=== PATIENT | female | born 1940 | race Caucasian/White ===

== ENCOUNTER 2017-04-06 19:33 | Inpatient (IN) | payer MEDICARE ==
[~2017-04-06] VITALS: Ht 160 cm; Wt 51.7 kg
--- NOTE | 2017-04-06 21:33 | NUR ---
Report called to MAYTE Silver. Preparing to transfer pt to the floor
--- NOTE | 2017-04-06 21:59 | NUR ---
UNABLE TO GET ANY TYPE OF LIST FOR MEDS FROM PT OR SON
[2017-04-06 22:20] VITALS: BP 145/77
--- NOTE | 2017-04-06 22:25 | NUR ---
77 Y.O. FEMALE BROUGHT TO ER VIA AMBULANCE FROM [facility] IN [place]. Pt MEDICALLY CLEARED IN ER AND BROUGHT TO [facility] VIA GURNEY ACCOMPANIED BY ER STAFF. ACCORDING TO THE 5150, Pt IS PSYCHOTIC WITH AUDITORY HALLUCINATIONS AND BIZARRE BEHAVIOR. Pt IS OBTUSE, TANGENTIAL, AND NON-SENSICAL WITH PRESSURED SPEECH AND FLIGHT OF IDEAS. Pt HAS BEEN LIVING ALONE FOR 18 YEARS AND IS UNABLE TO PROVIDE DETAILS OF SELF CARE. Pt HAS HAD SIMILAR INCIDENCES D/T SCHIZOAFFECTIVE EPISODE. Pt MAKES MULTIPLE REFERENCES TO CHURCHES, GOD, AND EVENTS FROM 20 YEARS AGO. Pt APPEARS TO REFLECT WHAT IS ON THE HOLD, RN CONCURS WITH HOLD. ADVISEMENT GIVEN TO Pt. UPON FACE TO FACE EVALUATION, Pt PRESENTS MANIC, HYPERVERBAL, RAMBLING, TANGENTIAL, BIZARRE, PARANOID, AND DISORGANIZED. Pt IS A POOR HISTORIAN AND UNABLE TO PROVIDE ANY ACCURATE PERSONAL INFORMATION. DELUSIONAL, Pt STATES, "I KNOW PEOPLE IN [place], THEY ARE IN MY FAMILY." Pt ACCOMPANIED BY HER SON, AND HE WAS ABLE TO PROVIDE SOME INFORMATION. Pt STARED BLANKLY WHEN ASKED ABOUT SI, UNABLE TO CFS AT THIS TIME. Pt ACTIVELY RESPONDING TO INTERNAL STIMULI AND MUMBLING TO HERSELF, IS INTERNALLY PREOCCUPIED. Pt EXHIBITS POOR EYE CONTACT AND PRESSURED SPEECH. A+Ox1 TO NAME ONLY, Pt STATED, "[facility] Pt STATED THE REASON FOR ADMISSION "I THINK I NEED TO BE EVALUATED FOR A STROKE". Pt APPEARS DISHEVELED IN [facility]OWN AND SOILED SOCKS. UNABLE TO OBTAIN RELIABLE MEDICAL HX PER Pt AND SONS MANOLO AND TONE, UNABLE TO OBTAIN HOME MEDS, WILL ENDORSE TO DAY RN. VS STABLE UPON ADMISSION, DENIES PAIN. DR UNGER AND CHELSIE UMAÑA NOTIFIED OF Pt ADMISSION, ORDERS RECEIVED. BELONGINGS INVENTORIED AND PLACED IN UNIT LOCKER. Pt UNABLE TO SIGN PAPERWORK DUE TO MENTAL STATUS. Pt REFUSED VACCINES. Pt ORIENTED TO UNIT AND EDUCATED ABOUT UNIT RULES. Pt RIGHTS HANDBOOK GIVEN TO Pt
[2017-04-06] MEDS ORDERED: MAG HYDROX/AL HYDROX/SIMETH 30 ML LIQUID UDC PO PRN (22:45)
[2017-04-06] MEDS ORDERED: MAGNESIUM HYDROXIDE 30 ML LIQUID UDC PO PRN (22:45)
[2017-04-06] MEDS ORDERED: TEMAZEPAM 7.5 MG CAPSULE PO PRN (22:45)
[2017-04-07 07:30] VITALS: BP 135/78
[2017-04-07] MEDS: OLANZAPINE ZYDIS 5 MG TAB.RAPDIS PO SCH (12:14)
[2017-04-07 15:00] VITALS: BP 137/89
[2017-04-07] MEDS: CLONAZEPAM 0.5 MG TABLET PO PRN (19:57)
[2017-04-07] MEDS: ATORVASTATIN 10 MG TABLET PO SCH (20:06)
[2017-04-07 20:17] VITALS: BP 137/86
[2017-04-07] MEDS ORDERED: OLANZAPINE 10 MG VIAL IM ONE ×2 (22:45→22:56)
--- NOTE | 2017-04-08 02:04 | NUR ---
GPS/NSG Patient observed sitting on the floor when redirected patient began to cry, on approach patient was asked if staff could provide any help, however patient became agitated, and refused to cooperate when redirected off the floor into a chair. Patient displayed bizarre affect, with violent behavior by striking out at staff with the public phone hand piece. no harm evident however patient exhibited signs of increased escalation. physician contacted, IM times once order obtained and administered with effective outcome. Will continue to monitor for patient safety and well being. Addendum: 04/08/17 at 0211 by ARGELIA MATHIS RN IM administered on right deltoid.
[2017-04-08 07:24] LABS: CARBON DIOXIDE 31 mmol/L (21-32); CHLORIDE 112 mmol/L (98-107); CREATININE 0.7 mg/dL (0.6-1.3); GLUCOSE 100 mg/dL (74-106); POTASSIUM 5.5 mmol/L (3.5-5.1); UREA NITROGEN, BLOOD 14 mg/dL (7-18)
[2017-04-08 07:26] LABS: BASOPHILS # (AUTO) 0.1 K/uL (0.0-8.0); BASOPHILS % (AUTO) 1.7 % (0.0-2.0); EOSINOPHILS # (AUTO) 0.4 K/uL (0.0-0.7); EOSINOPHILS % (AUTO) 6.6 % (0.0-7.0); HEMATOCRIT 42.5 % (37-47); HEMOGLOBIN 14.5 G/DL (12.0-16.0); LYMPHOCYTES # (AUTO) 1.9 K/UL (0.8-4.8); LYMPHOCYTES % (AUTO) 32.5 % (20.5-51.5); MEAN CORPUSCULAR HEMOGLOBIN 31.8 UUG (27.0-31.0); MEAN CORPUSCULAR HGB CONC 34 g/dL (32.0-37.0); MEAN CORPUSCULAR VOLUME 93.4 FL (81.0-99.0); MONOCYTES # (AUTO) 0.5 K/UL (0.1-1.30); MONOCYTES % (AUTO) 9.5 % (0.0-11.0); NEUTROPHILS # (AUTO) 2.8 K/UL (1.8-8.9); NEUTROPHILS % (AUTO) 49.7 % (38.5-71.5); PLATELET COUNT (AUTO) 186 K/UL (150-450); RED BLOOD CELL COUNT(AUTO) 4.55 MIL/UL (4.2-5.4); WHITE BLOOD COUNT (AUTO) 5.7 K/UL (4.0-11.2)
[2017-04-08 07:30] VITALS: BP 104/72
[2017-04-08] MEDS: FAMOTIDINE 20 MG TABLET PO SCH (09:00)
[2017-04-08] MEDS: OLANZAPINE ZYDIS 5 MG TAB.RAPDIS PO SCH (09:30)
[2017-04-08 16:35] VITALS: BP 130/96
[2017-04-08] MEDS: CLONAZEPAM 0.5 MG TABLET PO PRN (20:18)
[2017-04-08] MEDS: ATORVASTATIN 10 MG TABLET PO SCH (20:18)
[2017-04-08 20:34] VITALS: BP 141/84
--- NOTE | 2017-04-08 21:52 | NUR ---
PATIENT RECEIVED WALKING THROUGH OUT THE UNIT, IN AND OUT OF ROOM TO ACTIVITIES ROOM. PATIENT ALERT/ORIENTED X1 TO NAME, CONFUSED, DISORGANIZED. PATIENT IS EASILY ANGRY, IRRITABLE, AND AGITATED ABLE TO REDIRECT. PATIENT NEEDS CONSTANT REDIRECTION AND PROMPTING. NO AGGRESSIVE OR COMBATIVE BEHAVIOR NOTED, WILL CONTINUE TO MONITOR AND REDIRECT.
[2017-04-09 07:30] VITALS: BP 132/79
[2017-04-09] MEDS: FAMOTIDINE 20 MG TABLET PO SCH (09:00)
[2017-04-09] MEDS: OLANZAPINE ZYDIS 5 MG TAB.RAPDIS PO SCH ×3 (09:00→17:00)
[2017-04-09 16:26] VITALS: BP 133/82
--- NOTE | 2017-04-09 16:44 | NUR ---
Initial Discharge Instructions: Pt resides at home alone [[address] [place] [address] [place] [id number]; [phone]]. Per pt, she would like to go back home upon discharge. Spoke with pt's son, Maksim Mena , who reported that he would like his mother to return home but is open to SNF placement if necessary. SW will speak with pt, family, and MD regarding appropriate discharge plans. SW will form a safe and proper discharge.
[2017-04-09] MEDS ORDERED: LEVO100T PO (17:46)
[2017-04-09 20:48] VITALS: BP 136/86
[2017-04-09] MEDS: ATORVASTATIN 10 MG TABLET PO SCH (21:00)
--- NOTE | 2017-04-09 21:22 | NUR ---
PATIENT RECEIVED WALKING THROUGH OUT THE UNIT, IN AND OUT OF ROOM TO ACTIVITIES ROOM. TANGENTIAL AND NON-SENSICAL. PATIENT ALERT/ORIENTED X1 TO NAME, CONFUSED, DISORGANIZED. PATIENT IS EASILY ANGRY, IRRITABLE ABLE TO REDIRECT. PATIENT NEEDS CONSTANT REDIRECTION AND PROMPTING. NO AGGRESSIVE OR COMBATIVE BEHAVIOR NOTED, WILL CONTINUE TO MONITOR AND REDIRECT.
[2017-04-10 07:30] VITALS: BP 132/81
[2017-04-10 08:13] LABS: *BILIRUBIN,URIN NEGATIVE (NEGATIVE); *BLOOD, URINE 1+ (NEGATIVE); *COLOR,URINE YELLOW (YELLOW); *KETONES,URINE NEGATIVE (NEGATIVE); *PROTEIN,URINE NEGATIVE (NEGATIVE); *UROBILINOGEN,URINE 0.2 E.U./dl (NORMAL); LEUKOCYTE ESTERASE ,URINE 3+ (NEGATIVE); NITRITE, URINE NEGATIVE (NEGATIVE); UGLUCOSE NEGATIVE (NEGATIVE)
[2017-04-10] MEDS: OLANZAPINE ZYDIS 5 MG TAB.RAPDIS PO SCH ×3 (08:23→18:25)
[2017-04-10] MEDS: FAMOTIDINE 20 MG TABLET PO SCH (08:23)
[2017-04-10 08:29] LABS: *CLARITY,URINE HAZY (CLEAR)
[2017-04-10] MEDS: CLONAZEPAM 0.5 MG TABLET PO PRN ×2 (08:35→20:25)
[2017-04-10 08:39] LABS: SQUAMOUS EPITHELIAL CELL,UR FEW /HPF (NONE SEEN); WBC,URINE 20-50 /HPF (0-3)
[2017-04-10 08:40] LABS: BACTERIA,URINE MANY /HPF (NONE SEEN)
[2017-04-10] MEDS: SULFAMETH/TRIMETH 800/160 MG TABLET PO SCH ×2 (11:15→20:25)
[2017-04-10] MEDS: LEVOTHYROXINE SODIUM 100 MCG TABLET PO SCH (15:00)
[2017-04-10] MEDS: DOCUSATE SODIUM 100 MG CAPSULE PO SCH ×2 (15:00→20:25)
[2017-04-10 16:52] VITALS: BP 113/68
[2017-04-10 20:01] VITALS: BP 143/87
[2017-04-10] MEDS: ATORVASTATIN 10 MG TABLET PO SCH (20:25)
--- NOTE | 2017-04-10 21:15 | NUR ---
NOTIFIED DR PAULINO OF ELEVATED K+. BMP, CBC, Mg AND PHOS AM LABS ORDERED.
[2017-04-11] MEDS: LEVOTHYROXINE SODIUM 100 MCG TABLET PO SCH (06:44)
[2017-04-11 07:26] LABS: BASOPHILS # (AUTO) 0.1 K/uL (0.0-8.0); EOSINOPHILS # (AUTO) 0.4 K/uL (0.0-0.7); HEMATOCRIT 43.2 % (37-47); HEMOGLOBIN 14.6 G/DL (12.0-16.0); LYMPHOCYTES # (AUTO) 1.2 K/UL (0.8-4.8); LYMPHOCYTES % (AUTO) 25.9 % (20.5-51.5); MEAN CORPUSCULAR HEMOGLOBIN 31.7 UUG (27.0-31.0); MEAN CORPUSCULAR HGB CONC 34 g/dL (32.0-37.0); MEAN CORPUSCULAR VOLUME 93.9 FL (81.0-99.0); MONOCYTES # (AUTO) 0.4 K/UL (0.1-1.30); NEUTROPHILS # (AUTO) 2.4 K/UL (1.8-8.9); NEUTROPHILS % (AUTO) 55.1 % (38.5-71.5); PLATELET COUNT (AUTO) 167 K/UL (150-450); WHITE BLOOD COUNT (AUTO) 4.5 K/UL (4.0-11.2)
[2017-04-11 07:30] VITALS: BP 142/88
[2017-04-11 07:41] LABS: ALANINE AMINOTRANSFERASE 35 U/L (14-59); ALKALINE PHOSPHATASE 48 U/L (50-136); ASPARTATE AMINOTRANSFERASE 27 U/L (15-37); BILIRUBIN,TOTAL 0.6 mg/dL (0.2-1.0); CARBON DIOXIDE 30 mmol/L (21-32); CHLORIDE 106 mmol/L (98-107); CREATININE 0.8 mg/dL (0.6-1.3); GLUCOSE 87 mg/dL (74-106); MAGNESIUM 2.2 mg/dL (1.8-2.4); PHOSPHOROUS 3.8 mg/dL (2.5-4.9); POTASSIUM 3.8 mmol/L (3.5-5.1); TOTAL PROTEIN, SERUM 7.1 g/dL (6.4-8.2); UREA NITROGEN, BLOOD 16 mg/dL (7-18)
[2017-04-11 07:50] LABS: THYROID STIMULATING HORMONE 4.132 mIU/mL (0.358-3.740)
[2017-04-11] MEDS: FAMOTIDINE 20 MG TABLET PO SCH (08:23)
[2017-04-11] MEDS: CLONAZEPAM 0.5 MG TABLET PO PRN (08:23)
[2017-04-11] MEDS: SULFAMETH/TRIMETH 800/160 MG TABLET PO SCH ×2 (08:23→20:35)
[2017-04-11] MEDS: DOCUSATE SODIUM 100 MG CAPSULE PO SCH ×2 (08:23→20:35)
[2017-04-11] MEDS: OLANZAPINE ZYDIS 5 MG TAB.RAPDIS PO SCH ×2 (08:24→16:04)
[2017-04-11 15:05] VITALS: BP 121/74
[2017-04-11 20:29] VITALS: BP 141/86
[2017-04-11] MEDS: ATORVASTATIN 10 MG TABLET PO SCH (20:35)
[2017-04-11] MEDS: ACETAMINOPHEN 325 MG TABLET PO PRN (21:18)
--- NOTE | 2017-04-11 22:00 | NUR ---
received to care, talking to self, intermittently pacing the hallway, neddy, attention seeking, and difficult to redirect. PRN restoril was given for insomnia, at 2035. as of 2199, she appears to be asleep. no distress noted. will continue to monitor closely.
[2017-04-12] MEDS: CLONAZEPAM 0.5 MG TABLET PO PRN (00:05)
--- NOTE | 2017-04-12 00:05 | NUR ---
pt is now awake, and attempting to get out of bed. gait appears unsteady, so she was placed in the kari chair. ADRIAN monroe was offered, but she refused. will continue to monitor closely.
--- NOTE | 2017-04-12 01:30 | NUR ---
appears to be asleep. no distress noted.
--- NOTE | 2017-04-12 06:00 | NUR ---
slept 3.5 hours, total. assited with toileting, and AM care. currently sitting at nurses station. no distress noted.
[2017-04-12] MEDS: LEVOTHYROXINE SODIUM 100 MCG TABLET PO SCH (06:13)
[2017-04-12 07:30] VITALS: BP 127/66
[2017-04-12] MEDS: SULFAMETH/TRIMETH 800/160 MG TABLET PO SCH ×2 (09:19→20:40)
[2017-04-12] MEDS: OLANZAPINE ZYDIS 5 MG TAB.RAPDIS PO SCH (09:20)
[2017-04-12] MEDS: FAMOTIDINE 20 MG TABLET PO SCH (09:20)
[2017-04-12] MEDS: DOCUSATE SODIUM 100 MG CAPSULE PO SCH ×2 (09:20→20:40)
[2017-04-12 16:02] VITALS: BP 120/62
[2017-04-12 20:20] VITALS: BP 133/84
[2017-04-12] MEDS: OLANZAPINE 2.5 MG TABLET PO SCH (20:41)
[2017-04-12] MEDS: ATORVASTATIN 10 MG TABLET PO SCH (20:41)
[2017-04-13] MEDS: LEVOTHYROXINE SODIUM 100 MCG TABLET PO SCH (06:17)
[2017-04-13 07:30] VITALS: BP 123/73
[2017-04-13] MEDS: DOCUSATE SODIUM 100 MG CAPSULE PO SCH ×2 (08:57→20:12)
[2017-04-13] MEDS: FAMOTIDINE 20 MG TABLET PO SCH (09:00)
[2017-04-13] MEDS: SULFAMETH/TRIMETH 800/160 MG TABLET PO SCH ×3 (09:00→20:12)
[2017-04-13] MEDS: OLANZAPINE ZYDIS 5 MG TAB.RAPDIS PO SCH ×2 (09:00→12:33)
[2017-04-13] MEDS: ACETAMINOPHEN 325 MG TABLET PO PRN ×2 (12:30→20:22)
--- NOTE | 2017-04-13 12:30 | NUR ---
Pt c/o back pain 01/25. Pt given Tylenol 650mg.
--- NOTE | 2017-04-13 12:38 | NUR ---
Pt was not compliant w/ medication Olanzapine and Bactrim this morning. She refused to take the medication. Son came to visit and convinced her to take her morning meds now. Pt took both meds
[2017-04-13 15:00] VITALS: BP 118/72
[2017-04-13 20:12] VITALS: BP 140/84
[2017-04-13] MEDS: ATORVASTATIN 10 MG TABLET PO SCH (20:12)
[2017-04-13] MEDS: OLANZAPINE 2.5 MG TABLET PO SCH (20:12)
[2017-04-14] MEDS: LEVOTHYROXINE SODIUM 100 MCG TABLET PO SCH (06:21)
[2017-04-14 07:30] VITALS: BP 108/85
[2017-04-14 08:23] LABS: BASOPHILS # (AUTO) 0.1 K/uL (0.0-8.0); BASOPHILS % (AUTO) 3.3 % (0.0-2.0); EOSINOPHILS # (AUTO) 0.3 K/uL (0.0-0.7); HEMATOCRIT 40.1 % (31.2-41.9); LYMPHOCYTES # (AUTO) 0.6 K/uL (20.0-40.0); LYMPHOCYTES % (AUTO) 18.6 % (20.5-51.5); MEAN CORPUSCULAR HEMOGLOBIN 32.5 uug (24.7-32.8); MEAN CORPUSCULAR HGB CONC 35 g/dL (32.3-35.6); MEAN CORPUSCULAR VOLUME 92.9 fL (75.5-95.3); MONOCYTES # (AUTO) 0.4 K/uL (2.0-10.0); MONOCYTES % (AUTO) 12.7 % (0.0-11.0); NEUTROPHILS # (AUTO) 1.7 K/uL (1.8-8.9); NEUTROPHILS % (AUTO) 56.4 % (38.5-71.5); PLATELET COUNT (AUTO) 142 K/uL (179-408); RED BLOOD CELL COUNT(AUTO) 4.31 MIL/uL (3.63-4.92)
[2017-04-14 08:36] LABS: ALANINE AMINOTRANSFERASE 46 U/L (14-59); ALKALINE PHOSPHATASE 53 U/L (50-136); ASPARTATE AMINOTRANSFERASE 30 U/L (15-37); BILIRUBIN,TOTAL 0.6 mg/dL (0.2-1.0); CARBON DIOXIDE 30 mmol/L (21-32); CHLORIDE 104 mmol/L (98-107); CREATININE 0.9 mg/dL (0.6-1.3); GLUCOSE 83 mg/dL (74-106); MAGNESIUM 2.2 mg/dL (1.8-2.4); PHOSPHOROUS 3.7 mg/dL (2.5-4.9); POTASSIUM 4.1 mmol/L (3.5-5.1); TOTAL PROTEIN, SERUM 7.2 g/dL (6.4-8.2); UREA NITROGEN, BLOOD 17 mg/dL (7-18)
[2017-04-14] MEDS: OLANZAPINE ZYDIS 5 MG TAB.RAPDIS PO SCH (08:57)
[2017-04-14] MEDS: FAMOTIDINE 20 MG TABLET PO SCH (08:57)
[2017-04-14] MEDS: DOCUSATE SODIUM 100 MG CAPSULE PO SCH ×2 (08:58→20:38)
[2017-04-14] MEDS: SULFAMETH/TRIMETH 800/160 MG TABLET PO SCH ×2 (08:58→20:38)
[2017-04-14] MEDS: ACETAMINOPHEN 325 MG TABLET PO PRN ×2 (09:05→15:46)
[2017-04-14] MEDS: LIDOCAINE 5% PATCH TD SCH (11:09)
[2017-04-14 15:00] VITALS: BP 111/67
[2017-04-14] MEDS: OLANZAPINE 2.5 MG TABLET PO SCH (20:38)
[2017-04-14] MEDS: ATORVASTATIN 10 MG TABLET PO SCH (20:38)
[2017-04-14 20:50] VITALS: BP 110/71
[2017-04-15] MEDS: LEVOTHYROXINE SODIUM 100 MCG TABLET PO SCH (06:24)
[2017-04-15 07:30] VITALS: BP 127/88
[2017-04-15] MEDS: LIDOCAINE 5% PATCH TD SCH (09:00)
[2017-04-15] MEDS: DOCUSATE SODIUM 100 MG CAPSULE PO SCH ×2 (09:52→20:07)
[2017-04-15] MEDS: FAMOTIDINE 20 MG TABLET PO SCH (09:52)
[2017-04-15] MEDS: SULFAMETH/TRIMETH 800/160 MG TABLET PO SCH ×2 (09:52→20:07)
[2017-04-15] MEDS: OLANZAPINE ZYDIS 5 MG TAB.RAPDIS PO SCH (09:52)
[2017-04-15 15:16] VITALS: BP 111/72
--- NOTE | 2017-04-15 18:51 | NUR ---
GPS: Resting comfortably in bed at this time without any complaints of pain verbalized. Safety emphasized. Reminded to call for assistance as needed. Needs attended and anticipated. Remains confused,disoriented and disorganized. Poor insight to present situation. No aggressive behavior noted. Will continue to monitor and re-direct prn.
[2017-04-15 20:04] VITALS: BP 110/60
[2017-04-15] MEDS: OLANZAPINE 2.5 MG TABLET PO SCH (20:07)
[2017-04-15] MEDS: ATORVASTATIN 10 MG TABLET PO SCH (20:07)
[2017-04-16] MEDS: LEVOTHYROXINE SODIUM 100 MCG TABLET PO SCH (06:24)
[2017-04-16 07:30] VITALS: BP 115/68
[2017-04-16] MEDS: DOCUSATE SODIUM 100 MG CAPSULE PO SCH (08:36)
[2017-04-16] MEDS: FAMOTIDINE 20 MG TABLET PO SCH (08:36)
[2017-04-16] MEDS: OLANZAPINE ZYDIS 5 MG TAB.RAPDIS PO SCH (08:36)
[2017-04-16] MEDS: LIDOCAINE 5% PATCH TD SCH (08:36)
[2017-04-16] MEDS: SULFAMETH/TRIMETH 800/160 MG TABLET PO SCH (08:36)
--- NOTE | 2017-04-16 12:11 | NUR ---
DC Note: Patient will be discharged back home [[address] [place] [place] [id number]; ] via private transportation at 4:00pm. Spoke with patient's son, Maksim , who will be providing the transportation. Son is aware and agreeable with discharge plans. Patient is aware and agreeable with discharge plans. Patient will follow-up with her Primary Care Physician, Dr. Gonzalez [[address], [place] [address]; ] and was given referrals to Psychiatrists Dr. Way ; Dr. Carvajal ; and Dr. Morales . Patient and family were also given referrals Home Health Agencies: [facility] ; [facility] ; and [facility] .
[2017-04-16 15:27] VITALS: BP 106/57
--- NOTE | 2017-04-16 16:57 | NUR ---
1620 Discharged instructions given to patient and so Maksim regarding medications to continue at home after discharged from hospital- both of them verbalized understanding. Prescriptions both medical and psychiatry given and received by the son and instructed to filled it to patient pharmacy that she is using. All belongings and valuables returned and signed. 1630 Bring patient to parking area per w/c alert and ox3, denies SI/HI. Patient went home with son via private car.
== END 2017-04-16 16:30 | disposition home or self-care (01) | DRG 885 ==
LOC: ER 19:35 → GPS 21:46
PROVIDERS: ADMIT Psychiatry & Neurology Psychiatry; ATTEND Nurse Practitioner Acute Care
DX: F29 Unspecified psychosis not due to a substance or known physiological condition (principal); E87.0 Hyperosmolality and hypernatremia; D69.6 Thrombocytopenia, unspecified; E87.5 Hyperkalemia; M41.9 Scoliosis, unspecified; N39.0 Urinary tract infection, site not specified; R45.851 Suicidal ideations; B96.1 Klebsiella pneumoniae [K. pneumoniae] as the cause of diseases classified elsewhere; F31.9 Bipolar disorder, unspecified; D72.819 Decreased white blood cell count, unspecified; E03.9 Hypothyroidism, unspecified; E78.00 Pure hypercholesterolemia, unspecified; M48.061 Spinal stenosis, lumbar region without neurogenic claudication; Z86.73 Personal history of transient ischemic attack (TIA), and cerebral infarction without residual deficits; M48.56XD Collapsed vertebra, not elsewhere classified, lumbar region, subsequent encounter for fracture with routine healing; Z91.81 History of falling; Z87.81 Personal history of (healed) traumatic fracture; M85.88 Other specified disorders of bone density and structure, other site; I70.0 Atherosclerosis of aorta; Z90.710 Acquired absence of both cervix and uterus; M77.9 Enthesopathy, unspecified
CPT/HCPCS: 36415; 70450; 71010; 72100; 72131; 83735; 84100; 84443; 85025; 87077; 87086; 93005; A4663; J2358